=== PATIENT | male | born 1940 | race Caucasian/White ===

== ENCOUNTER → 2019-09-24 | Outpatient (CLI) | payer OTHER ==
--- NOTE | 2019-09-24 15:04 | RADIOLOGY REPORT (SQ) ---
EXAM DESCRIPTION: DUPLEX ART/IRIS FLOW COMPLETE IMAGES COMPLETED DATE/TIME: 09/24/2019 9:32 am REASON FOR STUDY: GRAY (I70), RENOVASCULAR HTN (I15.0) I70.1 ATHEROSCLEROSIS OF RENAL ARTERY I15.0 RENOVASCULAR HYPERTENSION COMPARISON: None. TECHNIQUE: Realtime and static grayscale images acquired. Selected color Doppler, velocities and spe ctral images recorded. LIMITATIONS: Midline upper abdominal bowel gas. Renal artery origins off the aorta are difficult to visualize FINDINGS: RIGHT KIDNEY: RENAL ARTERY VELOCITIES: At the hilum, 66 cm/sec. Segmental artery velocity 55 cm/sec. RENAL VEIN: Color doppler flow present, patent. VELOCITY RATIO: 0.6. There is a delayed systolic upstroke throughout the right renal artery waveform s. More proximal stenosis could not be excluded KIDNEY: 9.7 cm in length with diffuse cortical thinning and increased echogenicity. No hydronephr osis. LEFT KIDNEY: RENAL ARTERY VELOCITIES: At the hilum, 69 cm/sec. Segmental artery velocity 71 cm/sec. RENAL VEIN: Color doppler flow present, patent. VELOCITY RATIO: 0.6. Normal waveforms. KIDNEY: 10.7 cm in length with normal cortical thickness and echogenicity. BLADDER: Normal. OTHER: Multiple stones in the gallbladder IMPRESSION: Small right kidney with cortical thinning. Blunted systolic upstroke right renal artery waveforms. More proximal right renal artery stenosis may be present. Correlate with CTA/MRA COMMENT: NORMAL RENAL ARTERY/AORTA VELOCITY RATIO IS LESS THAN OR EQUAL TO 3.5. TECHNICAL DOCUMENTATION: JOB ID: [id number] 2010 [employer]- All Rights Reserved Reading location - IP/workstation name: [email or web address]
== END ==
LOC: RAD 07:54
PROVIDERS: ATTEND Family Medicine
DX: I70.1 Atherosclerosis of renal artery (principal); I15.0 Renovascular hypertension
CPT/HCPCS: 93975